=== PATIENT | female | born 1950 | race Caucasian/White ===

== ENCOUNTER 2022-07-29 17:06 | Outpatient (CLI) | payer BC ==
[2022-07-29 18:00] LABS: #Eosinphils 0.2 10x3/uL (0.0-0.5); #Monocytes 0.7 10x3/uL (0.0-1.1); #Neutrophils 3.5 10x3/uL (1.5-8.4); %Basophils 0.5 % (0.0-2.0); %Eosinophils 3.3 % (0.0-6.0); %Monocytes 11.6 % (0.0-10.0); %Neutrophils 57.4 % (40.0-75.0); Hemoglobin 14.8 g/dL (12.0-15.5); Mean Corpuscular HGB CONC 33.9 g/dL (32.0-36.0); Mean Corpuscular Hemoglobin 31.8 pg (27.0-33.0); Mean Platelet Volume 9.6 fl (7.4-10.4); Platelet Count 294 10x3/uL (150-450); Red Blood Cell (RBC) Count 4.65 10x6/uL (3.90-5.03); White Blood Cell (WBC) Count 6.1 10x3/uL (3.5-10.5)
[2022-07-29 18:08] LABS: INR-International Normal Ratio 0.9; Prothrombin Time 9.9 sec (9.5-12.1)
[2022-07-29 18:18] LABS: Anion Gap 15 mmol/L (10-20); BUN (Urea Nitrogen) 11 mg/dL (9.8-20.1); Calc. Creatinine Clearance 0 mL/min (70-130); Calcium 9.7 mg/dL (7.8-10.44); Carbon Dioxide 22 mmol/L (23-31); Chloride 106 mmol/L (98-107); Estimated GFR 94; Glucose 81 mg/dL (83-110); Potassium 4.1 mmol/L (3.5-5.1); Sodium 139 mmol/L (136-145)
== END 2022-07-29 17:07 | disposition home or self-care (01) ==
LOC: LABBT 17:06
PROVIDERS: ATTEND Orthopaedic Surgery
DX: Z01.818 Encounter for other preprocedural examination (principal); M75.101 Unspecified rotator cuff tear or rupture of right shoulder, not specified as traumatic
CPT/HCPCS: 80048; 85025; 85610; 93005; 93010

== ENCOUNTER 2022-08-01 05:31 | Observation (INO) | payer BC ==
[2022-07-30 11:12] VITALS: BMI 31.6
[2022-08-01] MEDS ORDERED: Vancomycin (BATCH) 1.5 GRAM/300 ML BAG ONE (05:59)
[2022-08-01] MEDS ORDERED: Tranexamic Acid 1,000 MG/10 ML VIAL ONE (05:59)
[2022-08-01] MEDS ORDERED: Sodium Chloride 0.9% 100 ML ONE ×2 (05:59→07:03)
[2022-08-01] MEDS ORDERED: Midazolam HCl 2 mg/2 ml Vial ONE (06:05)
[2022-08-01] MEDS ORDERED: fentaNYL PF 100 MCG/2 ML SYRINGE ONE (06:05)
[2022-08-01] MEDS ORDERED: PROPOFOL 200 MG/20 ML VIAL ONE (06:15)
[2022-08-01] MEDS ORDERED: Ketorolac Tromethamine 30 MG/ML VIAL ONE (06:15)
[2022-08-01] MEDS ORDERED: diphenhydrAMINE 50 MG/ML VIAL ONE (06:15)
[2022-08-01] MEDS ORDERED: Ondansetron PF 4 MG/2 ML Vial ONE (06:15)
[2022-08-01] MEDS ORDERED: Rocuronium Bromide 10 MG/ML (10ML VIAL) ONE (06:15)
[2022-08-01] MEDS ORDERED: PHENYLEPHRINE-NS 100 MCG/ML 10 ML SYRINGE ONE (06:15)
[2022-08-01] MEDS ORDERED: Lidocaine 1% PF 5 ML VIAL ONE (06:15)
[2022-08-01] MEDS ORDERED: Ropivacaine 0.5% HCl/PF (150 MG/30 ML VIAL) ONE (06:31)
[2022-08-01] MEDS ORDERED: Lidocaine 1% (PF) 30 ML VIAL ONE ×2 (06:31→06:50)
[2022-08-01] MEDS ORDERED: Ropivacaine 0.2% HCl/PF 20 ML ONE (06:31)
[2022-08-01 06:46] LABS: SARS-CoV-2 NAA Rapid Test Not Detected (NotDetected)
[2022-08-01] MEDS ORDERED: methylPREDNISolone Acetate 40 mg/ml Vial ONE (06:50)
[2022-08-01] MEDS ORDERED: CEFAZOLIN 2 GM VIAL ONE (07:03)
[2022-08-01] MEDS ORDERED: Ropivacaine 0.2% 550 ML 550 ML NERVE BLCK SCH (07:30)
[2022-08-01] MEDS ORDERED: Zolpidem Tartrate 5 MG TAB PO PRN ×2 (07:30→09:39)
[2022-08-01] MEDS ORDERED: Promethazine HCl 25 MG/ML VIAL IM PRN (07:30)
[2022-08-01] MEDS ORDERED: Ondansetron PF 4 MG/2 ML Vial IVP PRN ×2 (07:30→09:39)
[2022-08-01] MEDS ORDERED: FENTANYL 50 MCG/ML 1 ML VIAL SLOW IVP PRN (07:30)
[2022-08-01] MEDS ORDERED: traMADol HCl 50 MG TAB PO PRN ×4 (07:30→09:39)
[2022-08-01] MEDS ORDERED: HYDROcodone/Acetaminophen 10/325 mg Tablet PO PRN ×4 (07:30→09:39)
[2022-08-01] MEDS: Famotidine 20 MG TAB PO SCH ×2 (09:00→21:12)
[2022-08-01] MEDS: Famotidine/PF 20 mg/2ml Vial SLOW IVP SCH ×2 (09:00→21:13)
[2022-08-01] MEDS ORDERED: SUGAMMADEX SODIUM 200 MG/2 ML VIAL ONE (09:06)
[2022-08-01] MEDS ORDERED: Ondansetron HCl/PF 4 MG/2 ML Vial IVP PRN (09:35)
[2022-08-01] MEDS ORDERED: Ondansetron ODT 4 MG TAB PO PRN (09:39)
[2022-08-01] MEDS ORDERED: diphenhydrAMINE 50 MG CAP PO PRN (09:39)
[2022-08-01] MEDS ORDERED: Bisacodyl 10 MG SUPP PR PRN (09:39)
[2022-08-01] MEDS ORDERED: Methocarbamol 500 MG TAB PO PRN (09:39)
[2022-08-01] MEDS ORDERED: Milk Of Magnesia 30 ML UDCUP PO PRN (09:39)
[2022-08-01] MEDS ORDERED: Methocarbamol 1 GM/10 ML VIAL SLOW IVP PRN (09:39)
[2022-08-01] MEDS: Dextrose 5 %-0.45 % NaCl 1,000 ML IV SCH ×2 (11:05→21:15)
[2022-08-01] MEDS: CEFAZOLIN 2 GM in Sodium Chloride 0.9% 100 ML IVPB SCH ×2 (13:18→21:12)
[2022-08-01] MEDS: Ketorolac Tromethamine 30 MG/ML VIAL IVP SCH ×3 (13:18→22:57)
[2022-08-01] MEDS: Acetaminophen 325 MG TAB PO PRN ×2 (15:12→21:11)
[2022-08-02] MEDS: Acetaminophen 325 MG TAB PO PRN (04:45)
[2022-08-02] MEDS: Ketorolac Tromethamine 30 MG/ML VIAL IVP SCH (05:35)
[2022-08-02] MEDS: Famotidine/PF 20 mg/2ml Vial SLOW IVP SCH (07:58)
[2022-08-02] MEDS: Famotidine 20 MG TAB PO SCH (10:11)
[2022-08-02 11:30] VITALS: BP 162/79; TEMP 97.8
== END 2022-08-02 11:30 | disposition home or self-care (01) ==
LOC: SDC 05:31 → SURG A 07:20
PROVIDERS: ADMIT Orthopaedic Surgery; ATTEND Orthopaedic Surgery
PROC: 0RRJ00Z Replacement of Right Shoulder Joint with Reverse Ball and Socket Synthetic Substitute, Open Approach (ICD-10-PCS; principal; 2022-08-01)
PROC: 3E0U33Z Introduction of Anti-inflammatory into Joints, Percutaneous Approach (ICD-10-PCS; 2022-08-01)
DX: M75.121 Complete rotator cuff tear or rupture of right shoulder, not specified as traumatic (principal); M67.813 Other specified disorders of tendon, right shoulder; M75.102 Unspecified rotator cuff tear or rupture of left shoulder, not specified as traumatic; M19.011 Primary osteoarthritis, right shoulder; I48.0 Paroxysmal atrial fibrillation; I10 Essential (primary) hypertension; I25.10 Atherosclerotic heart disease of native coronary artery without angina pectoris; I87.2 Venous insufficiency (chronic) (peripheral); E78.5 Hyperlipidemia, unspecified; E66.9 Obesity, unspecified; Z68.31 Body mass index [BMI] 31.0-31.9, adult; Z20.822 Contact with and (suspected) exposure to COVID-19; Z96.651 Presence of right artificial knee joint; Z86.73 Personal history of transient ischemic attack (TIA), and cerebral infarction without residual deficits; Z79.1 Long term (current) use of non-steroidal anti-inflammatories (NSAID); Z79.82 Long term (current) use of aspirin; Z79.890 Hormone replacement therapy; Z79.620 Long term (current) use of immunosuppressive biologic; Z79.85 Long-term (current) use of injectable non-insulin antidiabetic drugs; Z79.899 Other long term (current) drug therapy; Z88.5 Allergy status to narcotic agent; Z88.8 Allergy status to other drugs, medicaments and biological substances
CPT/HCPCS: 96374; 96375; 96376; A4306; C1713; C1776; G0378; J1030; J1200; J1885; J2001; J2250; J2405; J2704; J2795; J3370; J3490; J7042; U0002

== ENCOUNTER 2024-05-14 15:26 | Inpatient (IN) | payer BC, MEDICARE ==
[2024-05-14] MEDS ORDERED: niCARdipine 25 MG/10 ML SDV ONE (15:56)
[2024-05-14] MEDS ORDERED: dilTIAZem 25 MG/5 ML VIAL ONE (16:03)
[2024-05-14] MEDS ORDERED: dilTIAZem 125 MG/25 ML SDV ONE (16:03)
[2024-05-14 16:40] LABS: #Basophils 0.03 10x3/uL (0.0-0.2); %Basophils 0.4 % (0.0-1.0); %Eosinophils 4.3 % (0.0-10.0); %Lymphocytes 25.5 % (21.0-51.0); %Monocytes 11.7 % (0.0-10.0); %Neutrophils 57.8 % (42.0-75.0); Hematocrit 44.9 % (36.0-47.0); Hemoglobin 15.5 g/dL (12.0-16.0); Mean Corpuscular HGB CONC 34.5 g/dL (32.0-36.0); Mean Corpuscular Hemoglobin 31.9 pg (27.0-31.0); Mean Corpuscular Volume 92.4 fL (78.0-98.0); Mean Platelet Volume 9.8 fL (7.4-10.4); Platelet Count 310 10x3/uL (130-400); RBC Distribution Width 13.2 % (11.5-14.5); Red Blood Cell (RBC) Count 4.86 mill/uL (4.20-5.40)
[2024-05-14 16:54] LABS: ALT (SGPT) 27 U/L (8-55); AST (SGOT) 27 U/L (5-34); Albumin 4.1 g/dL (3.4-4.8); Alkaline Phosphatase 85 U/L (40-110); Anion Gap 14 mmol/L (10-20); BUN (Urea Nitrogen) 23 mg/dL (9.8-20.1); Bilirubin, Total 0.3 mg/dL (0.2-1.2); Calc. Creatinine Clearance 0 mL/min (70-130); Calcium 10.2 mg/dL (7.8-10.44); Carbon Dioxide 20 mmol/L (23-31); Chloride 106 mmol/L (98-107); Estimated GFR 93; Globulin 3.7 g/dL (2.4-3.5); Glucose 102 mg/dL (83-110); Potassium 4.4 mmol/L (3.5-5.1); Protein, Total 7.8 g/dL (5.8-8.1); Sodium 136 mmol/L (136-145)
[2024-05-14 17:00] LABS: Troponin I 0.059 ng/mL (< 0.028)
[2024-05-14] MEDS ORDERED: Ondansetron ODT 4 MG TAB PO PRN (19:51)
[2024-05-14] MEDS ORDERED: Ondansetron PF 4 MG/2 ML Vial IVP PRN (19:51)
[2024-05-14] MEDS ORDERED: Acetaminophen 650 MG Suppository PR PRN (19:51)
[2024-05-14] MEDS ORDERED: Acetaminophen 325 MG TAB PO PRN (19:51)
[2024-05-14] MEDS ORDERED: dilTIAZem 125 MG in Sodium Chloride 0.9% 100 ML IVPB SCH (20:00)
[2024-05-14 20:03] LABS: Troponin I 0.072 ng/mL (< 0.028)
[2024-05-14 20:09] VITALS: BMI 33.7
[2024-05-14 23:31] LABS: Troponin I 0.065 ng/mL (< 0.028)
[2024-05-15 05:24] LABS: #Basophils 0.04 10x3/uL (0.0-0.2); %Basophils 0.6 % (0.0-1.0); %Eosinophils 4.2 % (0.0-10.0); %Lymphocytes 24.8 % (21.0-51.0); %Monocytes 11.9 % (0.0-10.0); %Neutrophils 58.2 % (42.0-75.0); Hematocrit 46.2 % (36.0-47.0); Hemoglobin 15.6 g/dL (12.0-16.0); Mean Corpuscular HGB CONC 33.8 g/dL (32.0-36.0); Mean Corpuscular Hemoglobin 31.4 pg (27.0-31.0); Mean Platelet Volume 9.8 fL (7.4-10.4); Platelet Count 293 10x3/uL (130-400); RBC Distribution Width 13.2 % (11.5-14.5); Red Blood Cell (RBC) Count 4.97 mill/uL (4.20-5.40)
[2024-05-15 05:54] LABS: Anion Gap 16 mmol/L (10-20); BUN (Urea Nitrogen) 17 mg/dL (9.8-20.1); Calc. Creatinine Clearance 136 mL/min (70-130); Calcium 9.8 mg/dL (7.8-10.44); Carbon Dioxide 20 mmol/L (23-31); Chloride 108 mmol/L (98-107); Estimated GFR 95; Glucose 119 mg/dL (83-110); Potassium 3.8 mmol/L (3.5-5.1); Sodium 140 mmol/L (136-145)
[2024-05-15] MEDS ORDERED: Enoxaparin 40 MG (0.4 mL) SYRINGE ONE (08:19)
[2024-05-15] MEDS: Metoprolol Succinate XL 50 MG ER.TAB PO SCH ×2 (08:57→20:24)
[2024-05-15] MEDS ORDERED: Indapamide 1.25 MG TAB PO SCH (09:00)
[2024-05-15] MEDS: Enoxaparin 40 MG (0.4 mL) SYRINGE SC SCH (09:00)
[2024-05-15] MEDS: DorzolamidE/Timolol 2%/0.5% Ophth Soln 10 ml Bottle EA EYE SCH (09:01)
[2024-05-15] MEDS: Cholecalciferol 1,000 UNITS (25 MCG) TAB PO SCH (09:01)
[2024-05-15] MEDS ORDERED: Pantoprazole 40 MG DR.TAB ONE (09:04)
[2024-05-15] MEDS ORDERED: Multivit, Therapeutic 1 TAB ONE (09:04)
[2024-05-15] MEDS: Pantoprazole 40 MG DR.TAB PO SCH ×2 (09:05→21:15)
[2024-05-15] MEDS: Multivitamin W/ Minerals 1 TAB PO SCH (11:44)
[2024-05-15] MEDS: Dronedarone HCl 400 MG TAB PO SCH ×2 (11:49→17:23)
[2024-05-15] MEDS: Timolol 0.5% Ophth Soln 5 ml Bottle EA EYE SCH (14:24)
[2024-05-15] MEDS ORDERED: Digoxin 0.5 MG/2 ML AMP SLOW IVP SCH (18:45)
[2024-05-15] MEDS: Aspirin 81 mg Enteric Coated Tablet PO SCH (20:22)
[2024-05-15] MEDS: Meloxicam 15 MG TAB PO SCH (20:23)
[2024-05-15] MEDS: Latanoprost 0.005% Ophth Soln 2.5 ml Bottle EA EYE SCH (20:25)
[2024-05-15] MEDS ORDERED: Metoprolol Succinate XL 50 MG ER.TAB PO SCH (21:00)
[2024-05-15 23:36] LABS: Troponin I 0.028 ng/mL (< 0.028)
[2024-05-16] MEDS ORDERED: PROPOFOL 20 ML ONE (09:50)
[2024-05-16 15:20] VITALS: BP 133/87; TEMP 97.8
== END 2024-05-16 16:43 | disposition home or self-care (01) | DRG 309 ==
LOC: ERS 15:26 → SUATTDRO 15:26 → UNDOADMIN 19:40 → ERHOLD 19:40 → OBS 05-15 16:54
PROVIDERS: ADMIT Family Medicine; ATTEND Family Medicine
PROC: 5A2204Z Restoration of Cardiac Rhythm, Single (ICD-10-PCS; principal; 2024-05-16)
DX: I48.92 Unspecified atrial flutter (principal); J81.1 Chronic pulmonary edema; E78.5 Hyperlipidemia, unspecified; I48.91 Unspecified atrial fibrillation; Z96.611 Presence of right artificial shoulder joint; R79.89 Other specified abnormal findings of blood chemistry; Z79.890 Hormone replacement therapy; Z79.899 Other long term (current) drug therapy
CPT/HCPCS: 36415; 71045; 80048; 80053; 83735; 83880; 84443; 84484; 85025; 92960; 93005; 93306; 96374; 96376; J1650; J2704